=== PATIENT | male | born 1965 | race Caucasian/White ===

== ENCOUNTER 2018-02-14 21:37 | Inpatient (IN) ==
[2018-02-14] MEDS ORDERED: Sodium Chlor 0.9% Inj 500 ML IV.SIG ONE ×2 (22:24→23:43)
[2018-02-14 22:49] LABS: Baso # (Auto) 0.1 th/mm3 (0.0-0.2); Baso % (Auto) 1.1 % (0.0-2.0); Eos # (Auto) 0.1 th/mm3 (0.0-0.4); Eos % (Auto) 1.5 % (0.0-4.0); Hematocrit 36.2 % (39.0-51.0); Hemoglobin 12.1 gm/dL (13.0-17.0); Lymph % (Auto) 32.6 % (9.0-44.0); Mean Corpuscular HGB Conc 33.5 % (32.0-36.0); Mean Corpuscular Hemoglobin 30.4 pg (27.0-34.0); Mean Corpuscular Volume 90.7 fL (80.0-100.0); Mono # (Auto) 0.4 th/mm3 (0.0-0.9); Mono % (Auto) 7.3 % (0.0-8.0); Neut # (Auto) 3.5 th/mm3 (1.8-7.7); Neut % (Auto) 57.5 % (16.0-70.0); Platelet Count 251 th/mm3 (150-450); Red Cell Distribution Width 15.9 % (11.6-17.2); White Blood Count 6.1 th/mm3 (4.0-11.0)
--- NOTE | 2018-02-14 22:53 | XR ---
EXAM DATE: 02/14/2018 10:51 PM EDT AGE/SEX: 52 years / Male INDICATIONS: Chest pain for one week. CLINICAL DATA: This is the patient's initial encounter. Patient reports that signs and symptoms have been present for 1 week and indicates a pain score of 6/10. MEDICAL/SURGICAL HISTORY: None. None. COMPARISON: No prior exams available for comparison. FINDINGS: A single AP view of the chest demonstrates the lungs to be symmetrically aerated without evidence of mass, infiltrate or effusion. The cardiomediastinal contours are unremarkable. Osseous structures a re intact. CONCLUSION: Negative examination. Electronically signed by: Max Virk MD 02/14/2018 10:52 PM EDT
[2018-02-14 23:04] LABS: Activated Partial Thrombo Time 23.1 sec (24.3-30.1); INR 1.1 Ratio; Prothrombin Time 11.4 sec (9.8-11.6)
[2018-02-14 23:22] LABS: Anion Gap 13 meq/L (5-15); Blood Urea Nitrogen 37 mg/dL (7-18); Calcium 8.6 mg/dL (8.5-10.1); Carbon Dioxide 19.4 meq/L (21.0-32.0); Chloride 106 meq/L (98-107); Glomerular Filtration Rate 17 mL/min (>89); Glucose,Random 232 mg/dL (74-106); Magnesium 1.4 mg/dL (1.5-2.5); Potassium 4.5 meq/L (3.5-5.1); Sodium 138 meq/L (136-145)
[2018-02-14] MEDS ORDERED: Mag Sulf 1 gm/100 ml Premix 100 ML IV.SIG ONE (23:30)
--- NOTE | 2018-02-15 00:23 | ED ---
HPI General Chief Complaint: Chest Pain Stated Complaint: Chest pain/Poss Seizure Time Seen by Provider: 02/14/18 22:23 Source: patient and family Limitations: no limitations History of Present Illness HPI narrative: Patient is a 52-year-old male, past medical history significant for insulin-dependent diabetes, coronary artery disease with 2 previous stents, hypertension, sleep apnea who presents with complaint of syncope versus seizure. He was on a dinner cruise this evening with his when he started to have worsening chest pain, lightheadedness and lost consciousness for several minutes. His states that he had a shaking motion at that time but did not have any urinary incontinence. When patient came around he was slightly confused. Patient states that he has had intermittent chest pain for the last several days that is worsened with exertion associated with some dyspnea. He does admit to a central bed rest at home as he is on disability secondary to his chronic back pain. Patient has never had a seizure and has no family history of seizures. He did fall approximately 1 week ago and hit his head. No fever no chills. No cough nor congestion. No abdominal pain. With EMS he did receive aspirin and nitroglycerin. He states that his discomfort improved after the nitroglycerin. MD complaint: chest pain Complete Quality Measures for STEMI Alert Patients STEMI Alert: No Onset (ago): day(s) Duration: intermittent Onset: during rest and during exertion Pain location: substernal Severity: mild Quality: dull Pain radiation: LUE Relieving factors: nothing Exacerbating factors: exertion Context: recent immobilization Associated symptoms: syncope Treatments prior to arrival chest pain: aspirin and nitroglycerin Related Data Home Medications Medication Instructions Recorded Confirmed Prilosec 20 mg PO BID 02/14/18 02/14/18 amlodipine [Norvasc] 5 mg PO BID 02/14/18 02/14/18 atorvastatin 20 mg PO DAILY 02/14/18 02/14/18 chlorthalidone 25 mg PO DAILY 02/14/18 02/14/18 clonidine HCl 0.1 mg PO BID 02/14/18 02/14/18 escitalopram oxalate [Lexapro] 20 mg PO DAILY 02/14/18 02/14/18 gabapentin 300 mg PO BID 02/14/18 02/14/18 insulin detemir U-100 [Levemir 40 unit SUB-Q QPM 02/14/18 02/14/18 U-100 Insulin] insulin lispro [Humalog U-100 10 units SUB-Q TID 02/14/18 02/14/18 Insulin] losartan 100 mg PO DAILY 02/14/18 02/14/18 metoprolol tartrate 100 mg PO DAILY 02/14/18 02/14/18 topiramate [Topamax] 25 mg PO TID 02/14/18 02/14/18 Allergies Allergy/AdvReac Type Severity Reaction Status Date / Time No Known Allergies Allergy Verified 02/14/18 22:06 Review of Systems Except as stated in HPI: all other systems reviewed are negative Constitutional Denies fever(s) Eyes Denies blurry vision ENT Denies nasal congestion Cardiovascular Reports chest pain and Reports syncope Respiratory Reports dyspnea on exertion Gastrointestinal Denies abdominal pain Genitourinary Reports other (decreased urine output despite his "fluid pills") Musculoskeletal Reports back pain (chronic, unchanged) Integumentary/Breasts Denies rash Neurologic Denies headache(s) [facility] Medical History Medical History Back pain (Acute) Chest pain (Acute) Diabetes (Acute) Fall (Acute) HTN (hypertension) (Acute) Myocardial infarct (Acute) Sleep apnea (Acute) Vertigo (Acute) Surgical History Surgical History History of cataract surgery (Acute) Hx of knee surgery (Acute) Stented coronary artery (Acute) Social History Social History Substance History: No History of Abuse Second Hand Smoke Exposure: No Smoking Status: Never smoker Tobacco Type: Smokeless Tobacco How Often Do You Have a Drink Containing Alcohol: 2 to 4 times a month Recent Travel in [facility] within the Last 8 Weeks: No Recent Out of Country Travel within the Last 8 Weeks: No Immunization History Tetanus Immunization: <5 Years Hx Influenza Vaccine This Season: No Exam Narrative Exam Narrative: GENERAL: Well-appearing male in no acute distress SKIN: Focused skin assessment warm/dry. No rashes. HEAD: Atraumatic. Normocephalic. EYES: Pupils equal and round. No scleral icterus. No injection or drainage. ENT: No nasal bleeding or discharge. Mucous membranes pink and dry. NECK: Trachea midline. No JVD. CARDIOVASCULAR: Regular rate and rhythm. No murmur appreciated. Intact and equal peripheral pulses. RESPIRATORY: No accessory muscle use. Clear to auscultation. Breath sounds equal bilaterally. GASTROINTESTINAL: Abdomen soft, non-tender, nondistended. Hepatic and splenic margins not palpable. MUSCULOSKELETAL: No obvious deformities. No clubbing. No cyanosis. No edema. NEUROLOGICAL: Awake and alert. No obvious cranial nerve deficits. Motor grossly within normal limits. Normal sensation. No ataxia. Normal speech. PSYCHIATRIC: Appropriate mood and affect; insight and judgment normal. Course Initial Documented Vital Signs Temperature 98.7 F 02/14/18 22:01 Pulse Rate 76 02/14/18 22:01 Respiratory Rate 20 02/14/18 22:01 Blood Pressure 94/55 L 02/14/18 22:01 Pulse Oximetry 97 02/14/18 22:01 Last Documented Vital Signs Temperature 98.7 F 02/14/18 22:01 Pulse Rate 77 02/15/18 01:17 Respiratory Rate 21 02/15/18 00:10 Blood Pressure 100/58 L 02/15/18 01:17 Pulse Oximetry 99 02/15/18 01:17 Medical Decision Making [facility] Narrative Medical decision making narrative: Patient is a 52-year-old male, past medical history significant for coronary artery disease, who presents with complaint of chest pain intermittently over the last several days with an episode of syncope versus seizure while at dinner tonight. On arrival he was hypotensive but this improved with rehydration. EKGs were unchanged from previous. Initial labs revealed a markedly elevated creatinine which patient states is new for him. Initial troponin was unremarkable. Given his syncope versus seizure and hypotension on arrival a CTA to rule out pulmonary embolism was ordered. Secondary to his acute kidney injury he could not receive IV contrast and a VQ study was ordered. The technicians informed us that the V/Q study was going to take several hours and is still pending at this time. CT head did show a hypodensity which will need further workup with an MRI. He has been admitted to the hospitalist service for his KAMARN and chest pain (to rule out FL) and for further workup and management. Differential Diagnosis Differential Diagnosis: Differential diagnosis includes but is not limited to acute coronary syndrome, pulmonary embolism, aortic dissection, pneumonia, heart failure, cardiomyopathy, seizure, intracranial mass. Medical Records Medical records reviewed: Yes I reviewed the patient's medical records. Lab Data Lab results reviewed: Yes I reviewed the patient's lab results. Lab results narrative: Labs consistent with dehydration and acute worsening of renal function with hyperglycemia. Result diagrams: 02/14/18 22:30 02/14/18 22:30 Lab Results 02/14/18 02/14/18 02/14/18 Range/Units 22:30 22:30 22:30 WBC 6.1 (4.0-11.0) th/mm3 RBC 4.00 L (4.50-5.90) mil/mm3 Hgb 12.1 L (13.0-17.0) gm/dL Hct 36.2 L (39.0-51.0) % MCV 90.7 (80.0-100.0) fL MCH 30.4 (27.0-34.0) pg MCHC 33.5 (32.0-36.0) % RDW 15.9 (11.6-17.2) % Plt Count 251 (150-450) th/mm3 MPV 9.0 (7.0-11.0) fL Neut % (Auto) 57.5 (16.0-70.0) % Lymph % (Auto) 32.6 (9.0-44.0) % [place] % (Auto) 7.3 (0.0-8.0) % Eos % (Auto) 1.5 (0.0-4.0) % Baso % (Auto) 1.1 (0.0-2.0) % Neut # (Auto) 3.5 (1.8-7.7) th/mm3 Lymph # (Auto) 2.0 (1.0-4.8) th/mm3 [place] # (Auto) 0.4 (0.0-0.9) th/mm3 Eos # (Auto) 0.1 (0.0-0.4) th/mm3 Baso # (Auto) 0.1 (0.0-0.2) th/mm3 WBC Differential . Differential Comment Auto diff final PT 11.4 (9.8-11.6) sec INR 1.1 Ratio APTT 23.1 L (24.3-30.1) sec Sodium 138 (136-145) meq/L Potassium 4.5 (3.5-5.1) meq/L Chloride 106 (98-107) meq/L Carbon Dioxide 19.4 L (21.0-32.0) meq/L Anion Gap 13 (5-15) meq/L BUN 37 H (7-18) mg/dL Creatinine 3.75 H (0.60-1.30) mg/dL Estimated GFR 17 L (>89) mL/min Random Glucose 232 H (74-106) mg/dL Calcium 8.6 (8.5-10.1) mg/dL Magnesium 1.4 L (1.5-2.5) mg/dL Troponin I Less than 0.02 L (0.02-0.05) ng/mL B-Natriuretic Peptide (0-100) pg/mL 02/14/18 02/15/18 Range/Units 22:30 01:32 WBC (4.0-11.0) th/mm3 RBC (4.50-5.90) mil/mm3 Hgb (13.0-17.0) gm/dL Hct (39.0-51.0) % MCV (80.0-100.0) fL MCH (27.0-34.0) pg MCHC (32.0-36.0) % RDW (11.6-17.2) % Plt Count (150-450) th/mm3 MPV (7.0-11.0) fL Neut % (Auto) (16.0-70.0) % Lymph % (Auto) (9.0-44.0) % [place] % (Auto) (0.0-8.0) % Eos % (Auto) (0.0-4.0) % Baso % (Auto) (0.0-2.0) % Neut # (Auto) (1.8-7.7) th/mm3 Lymph # (Auto) (1.0-4.8) th/mm3 [place] # (Auto) (0.0-0.9) th/mm3 Eos # (Auto) (0.0-0.4) th/mm3 Baso # (Auto) (0.0-0.2) th/mm3 WBC Differential Differential Comment PT (9.8-11.6) sec INR Ratio APTT (24.3-30.1) sec Sodium (136-145) meq/L Potassium (3.5-5.1) meq/L Chloride (98-107) meq/L Carbon Dioxide (21.0-32.0) meq/L Anion Gap (5-15) meq/L BUN (7-18) mg/dL Creatinine (0.60-1.30) mg/dL Estimated GFR (>89) mL/min Random Glucose (74-106) mg/dL Calcium (8.5-10.1) mg/dL Magnesium (1.5-2.5) mg/dL Troponin I Less than 0.02 L (0.02-0.05) ng/mL B-Natriuretic Peptide 31 (0-100) pg/mL Imaging Data Attestation: I personally reviewed and interpreted this imaging study as follows : My impression: No acute cardiopulmonary process visualized on x-ray. Radiologist's impression: Chest X-Ray 02/14/18 22:24 CONCLUSION: Negative examination. Head CT 02/15/18 00:00 CONCLUSION: 1. The only abnormality seen is a 12 mm hypodensity in the cortex of the right occipital lobe. No evidence of mass effect, blood products, or cerebral edema. This is of uncertain significance. Recommend further characterization of this finding with MRI with and without contrast. . ECG Data EKG Prior to Arrival: No Attestation: I personally reviewed and interpreted this ECG as follows: (Sinus rhythm at a rate of 75 bpm. T-wave flattening in lead III. No other ST or T- wave changes. EKG is similar to previous EKG.) Prior ECG tracings: available for review Discharge Plan Discharge Disposition Patient Disposition: 30 Still Patient Discharge Condition Condition: Fair Discharge Details Diagnosis: KAMRAN (acute kidney injury), Chest pain, rule out acute myocardial infarction Physicians Team ED Provider: Yvette Koenig Primary Care Provider: Primary Care Jalyn Chacon Attending Provider: Mel Heredia Status ED Status: Admitted Patient
[2018-02-15] MEDS ORDERED: Sod Chloride 0.9% Inj 1,000 ML IV.SIG ONE (00:29)
--- NOTE | 2018-02-15 01:04 | CT ---
EXAM DATE: 02/15/2018 12:51 AM EDT AGE/SEX: 52 years / Male INDICATIONS: Seizure. CLINICAL DATA: This is the patient's initial encounter. Patient reports that signs and symptoms have been present for 1 day and indicates a pain score of 0/10. MEDICAL/SURGICAL HISTORY: Diabetes. Cardiovascular disease. Coronary stent None. RADIATION DOSE: 56.35 CTDI (mGy) COMPARISON: No prior exams available for comparison. TECHNIQUE: CT of the head without contrast. Using automated exposure control and adjustment of the mA and/or kV according to patient size, radiation dose was kept as low as reasonably achievable to ob tain optimal diagnostic quality images. DICOM format image data is available electronically for revi ew and comparison. FINDINGS: Cerebrum: The ventricles are normal for age. There is a focal 12 mm hypodensity in the cortex of the mid convexity right occipital lobe, best seen on axial image #13. No associated calcification or mas s effect. No evidence of acute blood products. No extraaxial fluid collections are seen. Posterior Fossa: The cerebellum and brainstem are intact. The 4th ventricle is midline. The cerebe llopontine angle is unremarkable. Extracranial: The visualized portion of the orbits is intact. Skull: The calvaria is intact. No evidence of skull fracture. CONCLUSION: 1. The only abnormality seen is a 12 mm hypodensity in the cortex of the right occipital lobe. No ev idence of mass effect, blood products, or cerebral edema. This is of uncertain significance. Recommen d further characterization of this finding with MRI with and without contrast. . Electronically signed by: Sly Hough MD 02/15/2018 1:03 AM EDT
[2018-02-15] MEDS ORDERED: Dextrose 50% in Water 50 ML Vial IV.PUSH PRN (01:49)
[2018-02-15] MEDS ORDERED: Temazepam 15 MG Capsule PO PRN (01:51)
[2018-02-15] MEDS ORDERED: Bisacodyl 10 MG Supp RECTAL PRN (01:51)
[2018-02-15] MEDS: Sod Chloride 0.9% Inj 1,000 ML IV.CONT SCH (02:00)
--- NOTE | 2018-02-15 03:00 | P.HPIM ---
History of Present Illness Primary Care Physician: No Primary Care Physician History of Present Illness: This is a 60-year-old male with a PMH of HTN, DM, Sleep Apnea and CAD s/p Stent who was brought to the ER by EMS after syncope vs seizure. Pt has minimal recollection of events. States he was on a dinner cruise w/ his and was sitting at a table talking to another couple when he had sudden onset of dizziness and chest pain, recalls nothing after that until he woke up in the ER. 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 No h/o seizure. Notes fall approx 1wk ago w/ head trauma but did not seek medical attention at that time. On arrival, BP 87/51, HR 76, O2 sat 99% on 2L NC, Afebrile. S/p 2L IVF w/ repeat BP 100/58, HR 77. CBC essentially unremarkable. INR 1.1. Creatinine 3.75, no previous labs for comparison however reports no history of renal dysfunction. Troponin negative. CXR with no acute findings. CT Head with abnormal 12 mm hypodensity cortex of right occipital lobe, no mass-effect or edema, recommend patient for MRI. V/Q pending, U/a pending. - Diagnosis (1) Syncope (2) Chest pain (3) KAMRAN (acute kidney injury) (4) Abnormal head CT (5) DM (diabetes mellitus) Inpatient Certification: I certify that the inpatient services were ordered in accordance with Medicare regulations governing the order. This includes certification that hospital inpatient services are reasonable and necessary and in the case of services not specified as inpatient-only under 42 CFR 419.22(n), that they are appropriately provided as inpatient services in accordance to with the 2-midnight benchmark under 43 CFR 412.3(e) Estimated Total Length of Stay (Days): 2 Plans for Post Hospital Care: Not yet determined Review of Systems PAST FAMILY HISTORY: Reviewed. 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 - Medical History Medical History: Medical History (Last Reviewed 02/15/18 @ 00:21 by Yvette Koenig MD) Back pain Chest pain Diabetes Fall HTN (hypertension) Myocardial infarct Sleep apnea Vertigo - Surgical History Surgical History: Surgical History (Last Reviewed 02/15/18 @ 00:21 by Yvette Koenig MD) History of cataract surgery Hx of knee surgery Stented coronary artery - Tobacco History Second Hand Smoke Exposure: No Tobacco Use In Past 30 Days: No Smoking Status: Never smoker Tobacco Type: Smokeless Tobacco - Alcohol History How Often Do You Have a Drink Containing Alcohol: 2 to 4 times a month - Substance Use History Substance History: No History of Abuse - Travel History Recent Travel in the [place] Within the Last 8 Weeks: No Recent Travel Out of the Country Within the Last 8 Weeks: No - Immunization History Tetanus Immunization: <5 Years Hx Influenza Vaccine This Season: No Medications and Allergies Active Medications: Active Medications Hydrocodone Bitart/Acetaminophen ([place] 5/325) 1 tab PO Q4H PRN PRN Reason: PAIN - Al Hydroxide/Mg Hydroxide (Milk Of Magnesia Liq) 30 ml PO Q12H PRN PRN Reason: Mild Constipation Bisacodyl (Dulcolax Supp) 10 mg RECTAL DAILY PRN PRN Reason: SEVERE CONSITIPATION Dextrose (D50w Vial) 50 ml IV.PUSH UNSCH PRN PRN Reason: PER HYPOGLYCEMIA PROTOCOL Glucagon (Glucagon Inj) 1 mg OTHER PRN PRN PRN Reason: for Hypoglycemia Protocol Sodium Chloride (Ns Inj) 1,000 mls @ 100 mls/hr IV.CONT .Q10H MADDIE Last Admin: 02/15/18 02:00 Dose: 100 mls/hr Insulin Aspart (Novolog Insulin Correctional Sugar Inj) 0 unit SQ ACHS MADDIE; Protocol Lactulose (Lactulose Liq) 30 ml PO DAILY PRN PRN Reason: SEVERE CONSITIPATION Ondansetron HCl (Zofran Inj) 4 mg IV.PUSH Q6H PRN PRN Reason: NAUSEA OR VOMITING Senna/Docusate Sodium (Janeth-Colace) 1 tab PO BID MADDIE Sennosides (Senokot) 17.2 mg PO Q12H PRN PRN Reason: Moderate Constipation Sodium Chloride (Ns Flush) 2 ml IV.FLUSH UNSCH PRN PRN Reason: FLUSH AFTER USING IV ACCESS Temazepam (Restoril) 15 mg PO HS PRN PRN Reason: INSOMNIA Allergies Allergy/AdvReac Type Severity Reaction Status Date / Time No Known Allergies Allergy Verified 02/14/18 22:06 Home Medications Medication Instructions Recorded Confirmed Type Prilosec 20 mg PO BID 02/14/18 02/14/18 History amlodipine [Norvasc] 5 mg PO BID 02/14/18 02/14/18 History atorvastatin 20 mg PO DAILY 02/14/18 02/14/18 History chlorthalidone 25 mg PO DAILY 02/14/18 02/14/18 History clonidine HCl 0.1 mg PO BID 02/14/18 02/14/18 History escitalopram oxalate [Lexapro] 20 mg PO DAILY 02/14/18 02/14/18 History gabapentin 300 mg PO BID 02/14/18 02/14/18 History insulin detemir U-100 [Levemir 40 unit SUB-Q QPM 02/14/18 02/14/18 History U-100 Insulin] insulin lispro [Humalog U-100 10 units SUB-Q TID 02/14/18 02/14/18 History Insulin] losartan 100 mg PO DAILY 02/14/18 02/14/18 History metoprolol tartrate 100 mg PO DAILY 02/14/18 02/14/18 History topiramate [Topamax] 25 mg PO TID 02/14/18 02/14/18 History Exam Vital signs: Vital Signs 02/14/18 22:01 02/14/18 22:13 02/14/18 22:30 Temperature 98.7 F Pulse Rate 76 76 73 Respiratory Rate 20 22 Blood Pressure 94/55 L 87/51 L 75/45 L Pulse Oximetry 97 99 99 02/14/18 22:43 02/14/18 23:56 02/15/18 00:01 Temperature Pulse Rate 73 75 74 Respiratory Rate 20 20 Blood Pressure 83/52 L 87/48 L 90/54 L Pulse Oximetry 98 100 99 02/15/18 00:10 02/15/18 00:16 02/15/18 00:36 Temperature Pulse Rate 73 71 71 Respiratory Rate 21 Blood Pressure 87/48 L 83/44 L 88/52 L Pulse Oximetry 100 100 99 02/15/18 01:17 Temperature Pulse Rate 77 Respiratory Rate Blood Pressure 100/58 L Pulse Oximetry 99 Intake & Output 02/14/18 02/14/18 02/15/18 06:59 18:59 06:59 Intake Total 1100 / 1100 Balance 1100 / 1100 Weight 142.882 kg Intake: IV 1100 / 1100 Magnesium Sulfate 1 gm/D5W 100 100 / 100 ml Premix 100 ML @ 100 mls/hr IV.SIG ONCE ONE Rx#:[id number] NS Inj 500 ML @ Wide Open IV. 1000 / 1000 SIG BOLUS ONE Rx#:[id number] Narrative: PE: GENERAL: Very pleasant middle-aged morbidly obese male in no acute distress. HEENT: PERRLA, EOMI. No scleral icterus or conjunctival pallor. No lid lag or facial droop. CARDIOVASCULAR: Regular rate and rhythm. No obvious murmurs to auscultation. No chest tenderness to palpation. RESPIRATORY: No obvious rhonchi or wheezing. Clear to auscultation. Breath sounds equal bilaterally. GASTROINTESTINAL: Abdomen soft, non-tender, nondistended. BS normal. MUSCULOSKELETAL: Extremities without clubbing, cyanosis, or edema. No obvious deformities. NEUROLOGICAL: Awake, alert and oriented x4. No focal neurologic deficits. Moving both upper and lower extremities spontaneously. Results - Labs CBC & Chem 7: 02/14/18 22:30 02/14/18 22:30 Labs: Short CBC 02/14/18 Range/Units 22:30 WBC 6.1 (4.0-11.0) th/mm3 Hgb 12.1 L (13.0-17.0) gm/dL Hct 36.2 L (39.0-51.0) % Plt Count 251 (150-450) th/mm3 BMP 02/14/18 22:30 Sodium 138 Potassium 4.5 Chloride 106 Carbon Dioxide 19.4 L BUN 37 H Creatinine 3.75 H Calcium 8.6 Cardiac Enzymes 02/14/18 02/15/18 Range/Units 22:30 01:32 Troponin I Less than 0.02 L Less than 0.02 L (0.02-0.05) ng/mL - Imaging Impressions Chest X-Ray 02/14/18 22:24 CONCLUSION: Negative examination. Head CT 02/15/18 00:00 CONCLUSION: 1. The only abnormality seen is a 12 mm hypodensity in the cortex of the right occipital lobe. No evidence of mass effect, blood products, or cerebral edema. This is of uncertain significance. Recommend further characterization of this finding with MRI with and without contrast. . Caprini VTE Risk Assessment Caprini VTE Risk Assessment: No/Low Risk (score <= 1) Caprini Risk Assessment Model: Point Value = 1 Point Value = 2 Point Value = 3 Point Value = 5 Age 41-60 Minor surgery BMI > 25 kg/m2 Swollen legs Varicose veins or History of unexplained or recurrent spontaneous Oral contraceptives or hormone replacement Sepsis (< 1 month) Serious lung disease, including pneumonia (< 1 month) Abnormal pulmonary function Acute myocardial infarction Congestive heart failure (< 1 month) History of inflammatory bowel disease Medical patient at bed rest Age 61-74 Arthroscopic surgery Major open surgery (> 45 min) Laparoscopic surgery (> 45 min) Malignancy Confined to bed (> 72 hours) Immobilizing plaster cast Central venous access Age >= 75 History of VTE Family history of VTE Factor V Leiden Prothrombin [id number] Lupus anticoagulant Anticardiolipin antibodies Elevated serum homocysteine Heparin-induced thrombocytopenia Other congenital or acquired thrombophilia Stroke (< 1 month) Elective arthroplasty Hip, pelvis, or leg fracture Acute spinal cord injury (< 1 month) Prophylaxis Regimen: Total Risk Factor Score Risk Level Prophylaxis Regimen 0-1 Low Early ambulation 2 Moderate Order ONE of the following: *Sequential Compression Device (SCD) *Heparin 5000 units SQ BID 3-4 Higher Order ONE of the following medications: *Heparin 5000 units SQ TID *Enoxaparin/Lovenox 40 mg SQ daily (WT < 150 kg, CrCl > 30 mL/min) *Enoxaparin/Lovenox 30 mg SQ daily (WT < 150 kg, CrCl > 10-29 mL/min) *Enoxaparin/Lovenox 30 mg SQ BID (WT < 150 kg, CrCl > 30 mL/min) AND/OR *Sequential Compression Device (SCD) 5 or more Highest Order ONE of the following medications: *Heparin 5000 units SQ TID (Preferred with Epidurals) *Enoxaparin/Lovenox 40 mg SQ daily (WT < 150 kg, CrCl > 30 mL/min) *Enoxaparin/Lovenox 30 mg SQ daily (WT < 150 kg, CrCl > 10-29 mL/min) *Enoxaparin/Lovenox 30 mg SQ BID (WT < 150 kg, CrCl > 30 mL/min) AND *Sequential Compression Device (SCD) Assessment and Plan - Assessment (1) Syncope Code(s): R55 - Syncope and collapse Status: Acute (2) Chest pain Code(s): R07.9 - Chest pain, unspecified Status: Acute (3) KAMRAN (acute kidney injury) Code(s): N17.9 - Acute kidney failure, unspecified Status: Acute (4) Abnormal head CT Code(s): R93.0 - Abnormal findings on diagnostic imaging of skull and head, not elsewhere classified Status: Acute (5) DM (diabetes mellitus) Code(s): E11.9 - Type 2 diabetes mellitus without complications Status: Acute - Plan A/P: 1. Syncope: vs Seizure, pt w/ c/o dizziness and subsequent syncope, noted to have seizure-like activity by bystanders, ?convulsive syncope vs true seizure. No h/o similar events. Check Echo to eval for valvular abnormalities/ cardiomyopathy, Neuro Checks, Check EEG to eval for seizure activity, Check MRI to further eval abnormal finding on CT. Neurology as needed. V/Q pending. Seizure Precautions. 2. Chest Pain: c/o chest pain prior to syncope/seizure, now chest pain free, h /o CAD s/p Stent, initial trop negative, check serial cardiac enzymes. Check Lipid Profile, Hgb A1c, Statin, ASA. 3. KAMRAN: Creatinine 3.75, no previous labs for comparison but presumably new, IVF for hydration, Check U/a, Monitor I/O, repeat labs in am. Nephrology consult as needed. 4. Abnormal CT Head: CT Head w/ abnormal 12mm hypodensity cortex of right occipital lobe, recommendation for MRI w/ and w/o contrast, however in light of KAMRAN will proceed without contrast. 5. DM: Sliding scale w/ Accu-Cheks. Check Hgb A1c, hold home Insulin for now 6. DVT Prophylaxis: Hold anticoagulation until MRI Brain results available, SCD/Teds 7. Social work for d/c planning as needed 8. Case discussed w/ ER physician at length, labs/records/imaging reviewed by me.
[2018-02-15] MEDS ORDERED: Morphine Inj 4 MG/ML Vial IV.PUSH PRN (03:02)
--- NOTE | 2018-02-15 04:02 | NM ---
EXAM DATE: 02/15/2018 3:06 AM EDT AGE/SEX: 52 years / Male INDICATIONS: Short of breath. CLINICAL DATA: This is the patient's initial encounter. Patient reports that signs and symptoms have been present for 2 days and indicates a pain score of 3/10. MEDICAL/SURGICAL HISTORY: Hypertension. Diabetes mellitus type II. Myocardial infarction. Cor onary artery stent. Knee surgery. COMPARISON: [facility], CHEST 1V SINGLE AP, 02/14/2018. . DOSE: 1.62 mCi Tc99m DTPA aerosol 8.1 mCi Tc99m MAA IV TECHNIQUE: Following five minutes of tidal breathing of DTPA aerosol, planar images of the lungs wer e performed in eight projections. The patient was then injected with MAA, and eight-view perfusion s can was performed. FINDINGS: There is a homogeneous pattern of aerosol delivery to the periphery of both lungs. No focal ventilat ory defects are seen. There is some mild central deposition of aerosol. The perfusion lung scan demonstrates a homogenous pattern of uptake in both lungs. No segmental or s ubsegmental defects are seen. CONCLUSION: 1. Low probability pulmonary embolism. Electronically signed by: Sly Hough MD 02/15/2018 4:00 AM EDT
[2018-02-15 08:22] LABS: Baso # (Auto) 0.1 th/mm3 (0.0-0.2); Baso % (Auto) 0.9 % (0.0-2.0); Eos # (Auto) 0.1 th/mm3 (0.0-0.4); Eos % (Auto) 1.6 % (0.0-4.0); Hematocrit 34.1 % (39.0-51.0); Hemoglobin 11.4 gm/dL (13.0-17.0); Lymph # (Auto) 1.8 th/mm3 (1.0-4.8); Lymph % (Auto) 28.2 % (9.0-44.0); Mean Corpuscular HGB Conc 33.6 % (32.0-36.0); Mean Corpuscular Hemoglobin 30.5 pg (27.0-34.0); Mean Corpuscular Volume 90.9 fL (80.0-100.0); Mean Platelet Volume 9.1 fL (7.0-11.0); Mono # (Auto) 0.7 th/mm3 (0.0-0.9); Mono % (Auto) 10.5 % (0.0-8.0); Neut # (Auto) 3.7 th/mm3 (1.8-7.7); Neut % (Auto) 58.8 % (16.0-70.0); Platelet Count 200 th/mm3 (150-450); Red Blood Count 3.75 mil/mm3 (4.50-5.90); Red Cell Distribution Width 15.5 % (11.6-17.2); White Blood Count 6.3 th/mm3 (4.0-11.0)
[2018-02-15] MEDS: Insulin NovoLOG Aspart Correctional Sugar Inj SQ SCH ×4 (08:24→21:20)
[2018-02-15] MEDS: Senna/Docusate Sodium 8.6/50 MG Tablet PO SCH ×2 (08:24→21:15)
[2018-02-15 08:35] LABS: Alanine Aminotransferase 87 U/L (12-78); Albumin 3.2 g/dL (3.4-5.0); Anion Gap 10 meq/L (5-15); Aspartate Aminotransferase 98 U/L (15-37); Blood Urea Nitrogen 35 mg/dL (7-18); Calcium 7.9 mg/dL (8.5-10.1); Carbon Dioxide 21.3 meq/L (21.0-32.0); Chloride 111 meq/L (98-107); Chol/HDL Ratio 4.58 Ratio; Glomerular Filtration Rate 20 mL/min (>89); Glucose,Random 149 mg/dL (74-106); Potassium 4.5 meq/L (3.5-5.1); Sodium 142 meq/L (136-145)
[2018-02-15 08:39] LABS: Alkaline Phosphatase 93 U/L (45-117); Total Protein 7.3 g/dL (6.4-8.2)
--- NOTE | 2018-02-15 08:43 | ECG ---
Date Performed: 02/15/2018 Time Performed: 01:52:58 PTAGE: 52 years EKG: Sinus rhythm LOW QRS VOLTAGE IN PRECORDIAL LEADS INFERIOR MYOCARDIAL INFARCTION ABNORMAL ECG Since the PREVIOUS TRACING , no significant change noted DOCTOR: Rosa Kerr Interpretating Date/Time 02/15/2018 08:42:20
--- NOTE | 2018-02-15 08:48 | ECG ---
Date Performed: 02/14/2018 Time Performed: 22:03:33 PTAGE: 52 years EKG: Sinus rhythm LOW QRS VOLTAGE IN PRECORDIAL LEADS POSSIBLE RIGHT VENTRICULAR CONDUCTION DELAY INFERIOR MYOCARDIAL INFARCTION ABNORMAL ECG NO PREVIOUS TRACING DOCTOR: Rosa Kerr Interpretating Date/Time 02/15/2018 08:46:21
[2018-02-15 09:03] LABS: Platelet Estimate Normal (Normal); Platelet Morphology Normal (Normal)
[2018-02-15] MEDS ORDERED: LORazepam 0.5 MG Tablet PO ONE (09:36)
--- NOTE | 2018-02-15 10:16 | P.PNIM ---
Subjective Interval history: Patient seen and examined this morning. Was attempting to walk to the bathroom but very unsteady on his feet. Was assisted back to bed. He states that he is very unsteady due to issues with his legs and he uses a walker at home. Patient instructed not to try to go to the bathroom without his walker. Today, he states that he has a headache, is having difficulty with vision due to not using his eyedrops, and has nausea and abdominal pain mostly in the right upper abdomen. He has also been feeling short of breath. Physical Exam Vital signs: Vital Signs 02/14/18 22:01 02/14/18 22:13 02/14/18 22:30 Temperature 98.7 F Pulse Rate 76 76 73 Respiratory Rate 20 22 Blood Pressure 94/55 L 87/51 L 75/45 L Pulse Oximetry 97 99 99 02/14/18 22:43 02/14/18 23:56 02/15/18 00:01 Temperature Pulse Rate 73 75 74 Respiratory Rate 20 20 Blood Pressure 83/52 L 87/48 L 90/54 L Pulse Oximetry 98 100 99 02/15/18 00:10 02/15/18 00:16 02/15/18 00:36 Temperature Pulse Rate 73 71 71 Respiratory Rate 21 Blood Pressure 87/48 L 83/44 L 88/52 L Pulse Oximetry 100 100 99 02/15/18 01:17 02/15/18 04:00 02/15/18 04:43 Temperature 98.3 F Pulse Rate 77 79 Respiratory Rate 18 Blood Pressure 100/58 L 124/76 123/78 Pulse Oximetry 99 99 02/15/18 08:00 Temperature 97.8 F Pulse Rate 71 Respiratory Rate 18 Blood Pressure 125/74 Pulse Oximetry 99 Intake & Output 02/14/18 02/15/18 02/15/18 18:59 06:59 18:59 Intake Total 1100 / 1100 Output Total 550 / 550 675 / 675 Balance 550 / 550 -675 / -675 Weight 145.5 kg Intake: IV 1100 / 1100 Magnesium Sulfate 1 gm/D5W 100 100 / 100 ml Premix 100 ML @ 100 mls/hr IV.SIG ONCE ONE Rx#:[id number] NS Inj 500 ML @ Wide Open IV. 1000 / 1000 SIG BOLUS ONE Rx#:[id number] Output: Urine 550 / 550 675 / 675 Other: Weight On Admission 145.5 kg Narrative: GENERAL: Very pleasant middle-aged morbidly obese male in no acute distress. HEENT: PERRLA, EOMI. No scleral icterus or conjunctival pallor. No lid lag or facial droop. CARDIOVASCULAR: Regular rate and rhythm. No obvious murmurs to auscultation. RESPIRATORY: Inspiratory and expiratory wheezing appreciated with crackles in bases GASTROINTESTINAL: Abdomen soft, ttp diffusely, but worse in the RUQ, obese, nondistended. BS normal. MUSCULOSKELETAL: Extremities without clubbing, cyanosis, or edema. No obvious deformities. NEUROLOGICAL: Awake, alert and oriented x4. No focal neurologic deficits. Moving both upper and lower extremities spontaneously. Results - Labs CBC & Chem 7: 02/15/18 07:10 02/15/18 07:10 Laboratory Results - last 24 hr 02/14/18 02/14/18 02/14/18 22:30 22:30 22:30 WBC 6.1 RBC 4.00 L Hgb 12.1 L Hct 36.2 L MCV 90.7 MCH 30.4 MCHC 33.5 RDW 15.9 Plt Count 251 MPV 9.0 Prelim Diff (Auto) Neut % (Auto) 57.5 Lymph % (Auto) 32.6 [place] % (Auto) 7.3 Eos % (Auto) 1.5 Baso % (Auto) 1.1 Neut # (Auto) 3.5 Lymph # (Auto) 2.0 [place] # (Auto) 0.4 Eos # (Auto) 0.1 Baso # (Auto) 0.1 WBC Differential . Diff Scan Differential Comment Auto diff final Platelet Estimate Platelet Morphology PT 11.4 INR 1.1 APTT 23.1 L Sodium 138 Potassium 4.5 Chloride 106 Carbon Dioxide 19.4 L Anion Gap 13 BUN 37 H Creatinine 3.75 H Estimated GFR 17 L POC Glucose Random Glucose 232 H Calcium 8.6 Magnesium 1.4 L Total Bilirubin AST ALT Alkaline Phosphatase Troponin I Less than 0.02 L B-Natriuretic Peptide Total Protein Albumin Triglycerides Cholesterol LDL Cholesterol, Calc HDL Cholesterol Cholesterol/HDL Ratio 02/14/18 02/15/18 02/15/18 22:30 01:32 07:10 WBC 6.3 RBC 3.75 L Hgb 11.4 L Hct 34.1 L MCV 90.9 MCH 30.5 MCHC 33.6 RDW 15.5 Plt Count 200 MPV 9.1 Prelim Diff (Auto) Slide review pending Neut % (Auto) 58.8 Lymph % (Auto) 28.2 [place] % (Auto) 10.5 H Eos % (Auto) 1.6 Baso % (Auto) 0.9 Neut # (Auto) 3.7 Lymph # (Auto) 1.8 [place] # (Auto) 0.7 Eos # (Auto) 0.1 Baso # (Auto) 0.1 WBC Differential . Diff Scan Auto diff confirmed Differential Comment . Platelet Estimate Normal Platelet Morphology Normal PT INR APTT Sodium Potassium Chloride Carbon Dioxide Anion Gap BUN Creatinine Estimated GFR POC Glucose Random Glucose Calcium Magnesium Total Bilirubin AST ALT Alkaline Phosphatase Troponin I Less than 0.02 L B-Natriuretic Peptide 31 Total Protein Albumin Triglycerides Cholesterol LDL Cholesterol, Calc HDL Cholesterol Cholesterol/HDL Ratio 02/15/18 02/15/18 02/15/18 07:10 07:10 08:13 WBC RBC Hgb Hct MCV MCH MCHC RDW Plt Count MPV Prelim Diff (Auto) Neut % (Auto) Lymph % (Auto) [place] % (Auto) Eos % (Auto) Baso % (Auto) Neut # (Auto) Lymph # (Auto) [place] # (Auto) Eos # (Auto) Baso # (Auto) WBC Differential Diff Scan Differential Comment Platelet Estimate Platelet Morphology PT INR APTT Sodium 142 Potassium 4.5 Chloride 111 H Carbon Dioxide 21.3 Anion Gap 10 BUN 35 H Creatinine 3.23 H Estimated GFR 20 L POC Glucose 158 H Random Glucose 149 H Calcium 7.9 L Magnesium Total Bilirubin 0.3 AST 98 H ALT 87 H Alkaline Phosphatase 93 Troponin I Less than 0.02 L B-Natriuretic Peptide Total Protein 7.3 Albumin 3.2 L Triglycerides 253 H Cholesterol 156 LDL Cholesterol, Calc 71 HDL Cholesterol 34.0 L Cholesterol/HDL Ratio 4.58 - Imaging Impressions Chest X-Ray 02/14/18 22:24 CONCLUSION: Negative examination. Head CT 02/15/18 00:00 CONCLUSION: 1. The only abnormality seen is a 12 mm hypodensity in the cortex of the right occipital lobe. No evidence of mass effect, blood products, or cerebral edema. This is of uncertain significance. Recommend further characterization of this finding with MRI with and without contrast. . Head MRI 02/15/18 00:00 CONCLUSION: 1. No acute intracranial abnormalities. Questionable remote small infarct or encephalomalacia in the right occipital lobe. Pulmonary Perfusion Imaging 02/15/18 00:05 CONCLUSION: 1. Low probability pulmonary embolism. Assessment and Plan - Assessment (1) Syncope Code(s): R55 - Syncope and collapse Status: Acute Plan: -Possible witnessed seizure EEG pending -Echo pending to rule out valvular abnormalities/cardiomyopathy -Abnormal 12mm hypodensity cortex of right occipital lobe on CT MRI to further evaluate abnormal finding on CT -VQ scan showed low probability of PE -Carotid ultrasound pending -Consider neurologic consult as needed (2) Abdominal pain Code(s): R10.9 - Unspecified abdominal pain Status: Acute Plan: -Diffuse abdominal pain, worse in the right upper quadrant -Abdominal ultrasound pending -Protonix PO (3) KAMRAN (acute kidney injury) Code(s): N17.9 - Acute kidney failure, unspecified Status: Acute Plan: Improving -Creatinine 3.23 today compared to 3.75 yesterday -Continue normal saline at 100 mL/h -Avoid nephrotoxic agents -Pending results of abdominal ultrasound (4) Chest pain, rule out acute myocardial infarction Code(s): R07.9 - Chest pain, unspecified Status: Resolved Plan: Improved -Troponin 0 0.023 -Lipid panel shows triglycerides of 253, total cholesterol WNL at 156, LDL 71 WNL, HDL 34 -Most likely not cardiac source -Continue to monitor for symptoms -Start daily aspirin after MRI results (5) DM (diabetes mellitus) Code(s): E11.9 - Type 2 diabetes mellitus without complications Status: Acute Plan: A1c 8.5 Continue Accu-Cheks with SSI Has required 6 units since admission Start Levemir 10 units subcu twice daily -titrate up as needed Continue gabapentin 300 mg p.o. 3 times daily (6) Hypertension Code(s): I10 - Essential (primary) hypertension Status: Chronic Plan: Initially hypotensive but BP now in the hypertensive range On amlodipine, clonidine, chlorthalidone, losartan, and metoprolol tartrate at home -We will restart amlodipine and metoprolol -Hold losartan due to KAMRAN -Clonidine as needed SBP greater than or equal to 180, DPP greater than or equal to 100 (7) Asthma Code(s): J45.909 - Unspecified asthma, uncomplicated Status: Chronic Plan: Wheezing appreciated on exam DuoNebs every 6 hours scheduled while awake Albuterol as needed (8) Depression Code(s): F32.9 - Major depressive disorder, single episode, unspecified Status : Acute Plan: Continue Lexapro 20 mg p.o. daily (9) Hyperlipemia Code(s): E78.5 - Hyperlipidemia, unspecified Status: Chronic Plan: Lipid panel as above -Continue home Atorvastatin 20 mg PO daily (10) Glaucoma Code(s): H40.9 - Unspecified glaucoma Status: Acute Plan: Continue home eyedrops - Plan Diabetic diet DVT Prophylaxis: Hold anticoagulation until MRI Brain results available, SCD/ Teds Social work for d/c planning as needed (6) Hypertension Qualifiers: Hypertension type: essential hypertension Qualified Code(s): I10 - Essential (primary) hypertension
[2018-02-15 12:21] LABS: Hemoglobin A1c 8.5 % (4.3-6.0)
[2018-02-15 13:20] LABS: Hepatitits B Surface Antigen Nonreactive (Nonreactive)
[2018-02-15 13:30] LABS: Hepatitis A IgM Antibody Nonreactive (Nonreactive)
--- NOTE | 2018-02-15 14:13 | MR ---
EXAM DATE: 02/15/2018 1:40 PM EDT AGE/SEX: 52 years / Male INDICATIONS: Seizures. CLINICAL DATA: This is the patient's initial encounter. Patient reports that signs and symptoms have been present for 1 day and indicates a pain score of 0/10. MEDICAL/SURGICAL HISTORY: Diabetes mellitus type II. Hypertension. . ORIF leg. COMPARISON: No prior exams available for comparison. TECHNIQUE: Multiplanar, multisequence examination of the brain was performed without contrast. FINDINGS: There is a small focal area of presumed encephalomalacia measuring about 12 mm in diameter in the rig ht occipital lobe peripherally. This may represent a remote small infarct. No recent infarct. There is no mass effect or midline shift. No hydrocephalus. No abnormal extra-axial fluid collections are present. Globes intact. No sellar mass. No significant paranasal sinus disease. CONCLUSION: 1. No acute intracranial abnormalities. Questionable remote small infarct or encephalomalacia in the right occipital lobe. Electronically signed by: Julien Loza MD 02/15/2018 2:11 PM EDT
[2018-02-15] MEDS ORDERED: amLODIPine 5 MG Tablet PO SCH (14:30)
--- NOTE | 2018-02-15 17:23 | US ---
EXAM DATE: 02/15/2018 5:07 PM EDT AGE/SEX: 52 years / Male INDICATIONS: Syncope. CLINICAL DATA: This is the patient's initial encounter. Patient reports that signs and symptoms have been present for 2 days and indicates a pain score of 0/10. MEDICAL/SURGICAL HISTORY: Hypertension. Back pain. Chest pain. Diabetes. Sleep apnea. Myocardia l infarction. Vertigo. Coronary artery stent. Cataract surgery. Knee surgery. COMPARISON: No prior exams available for comparison. VELOCITY PARAMETERS: ICA/CCA Ratio: Right 1.2 , Left 1.1 ICA: Right 102 cm/sec, Left 97 cm/sec CCA: Right 82 cm/sec, Left 86 cm/sec ECA: Right 94 cm/sec, Left not visualized cm/sec Vertebral: Right not visualized cm/sec absent, Left 58 cm/sec antegrade FINDINGS: Right Carotid: No significant plaque is visualized.The waveforms are within normal limits. Left Carotid: No significant plaque is visualized. The waveforms are within normal limits. Other: None. CONCLUSION: Negative for common carotid or internal carotid artery stenosis. Right vertebral artery and left exte rnal carotid artery not visualized. Electronically signed by: Julien Loza MD 02/15/2018 5:22 PM EDT
--- NOTE | 2018-02-15 17:25 | US ---
EXAM DATE: 02/15/2018 5:14 PM EDT AGE/SEX: 52 years / Male INDICATIONS: Abdominal pain. CLINICAL DATA: This is the patient's initial encounter. Patient reports that signs and symptoms have been present for 2 months and indicates a pain score of 7/10. MEDICAL/SURGICAL HISTORY: Hypertension. Back pain. Chest pain. Diabetes. Sleep apnea. Myocardia l infarction. Vertigo. Coronary artery stent. Cataract surgery. Knee surgery. COMPARISON: No prior exams available for comparison. MEASUREMENTS: Liver:__ 25.3 cm. Common Bile Duct:___ 6mm. Right Kidney:___11.8 x 5.0 x 5.8 cm. Left Kidney:___13.7 x 5.4 x 5.3 cm. Spleen:___12.1 cm. FINDINGS: Liver: Increased echotexture without focal lesion or ductal dilation. Portal Vein: Hepatopedal flow seen in portal vein. Common Duct: No intraluminal mass or stone visualized. Gallbladder: Demonstrates no wall thickening or pericholecystic fluid. No stones visualized. Pancreas: Not well visualized. Right Kidney: Normal echotexture and cortical thickness. No mass or hydronephrosis. Left Kidney: Increased echotexture. No mass or hydronephrosis. Ascites: None Pleural Effusion: None Spleen: No focal lesion. Aorta: Not visualized. IVC: Within normal limits Other: None. CONCLUSION: 1. Fatty liver enlarged to 25.3 cm. No ascites. No free fluid. Pancreas not well visualized. No gall stones or biliary ductal dilatation. Electronically signed by: Julien Loza MD 02/15/2018 5:23 PM EDT
[2018-02-15] MEDS ORDERED: Gabapentin 300 MG Capsule PO SCH (18:00)
[2018-02-15] MEDS ORDERED: Insulin Detemir Inj 1,000 UNIT/10 ML Vial SQ SCH (21:00)
[2018-02-16] MEDS: Sod Chloride 0.9% Inj 1,000 ML IV.CONT SCH ×3 (03:44→03:45)
[2018-02-16 05:23] LABS: Hematocrit 33.5 % (39.0-51.0); Hemoglobin 11.4 gm/dL (13.0-17.0); Mean Corpuscular HGB Conc 34.1 % (32.0-36.0); Mean Corpuscular Hemoglobin 30.5 pg (27.0-34.0); Mean Corpuscular Volume 89.6 fL (80.0-100.0); Mean Platelet Volume 8.9 fL (7.0-11.0); Platelet Count 212 th/mm3 (150-450); Red Blood Count 3.74 mil/mm3 (4.50-5.90); Red Cell Distribution Width 15.9 % (11.6-17.2); White Blood Count 5.4 th/mm3 (4.0-11.0)
[2018-02-16 05:51] LABS: Alanine Aminotransferase 84 U/L (12-78); Albumin 3.3 g/dL (3.4-5.0); Alkaline Phosphatase 100 U/L (45-117); Anion Gap 13 meq/L (5-15); Aspartate Aminotransferase 82 U/L (15-37); Blood Urea Nitrogen 29 mg/dL (7-18); Calcium 8.3 mg/dL (8.5-10.1); Carbon Dioxide 22.3 meq/L (21.0-32.0); Chloride 109 meq/L (98-107); Glomerular Filtration Rate 36 mL/min (>89); Glucose,Random 129 mg/dL (74-106); Lipase 457 U/L (73-393); Sodium 144 meq/L (136-145); Total Protein 7.7 g/dL (6.4-8.2)
--- NOTE | 2018-02-16 07:48 | MG ---
cc: Sofia Matthew MD EEG NUMBER: [id number] REFERRING PHYSICIAN: Dr. Heredia CLINICAL HISTORY: In room 1610 with photic stimulation. Awake, drowsy, asleep. CT shows abnormality in the cortex in the right occipital lobe. Admitted with chest pain, lightheadedness, some shaking motion and a history of back pain, diabetes. DESCRIPTION OF RECORD: The patient has what looks like an overall normal appearing alpha rhythm 8 Hz, 20 microvolts, low-amplitude but symmetrical background. EKG is artifactual and could not be interpreted. There is quite a bit of myogenic artifact throughout the recording, but overall symmetrical. Normal alpha rhythm. Despite all of the movements. There is some jerking movements, but it does not correlate with any epileptiform features in this patient. Hyperventilation was not done. Photic stimulation, mild driving response. IMPRESSION: Overall, normal appearing study without any epileptiform features. Clinical correlation. Sofia Matthew MD DF/DL , 07:31 AM , 07:36 AM
[2018-02-16] MEDS ORDERED: Metoprolol Tartrate 100 MG Tablet PO SCH (09:00)
[2018-02-16] MEDS: Insulin NovoLOG Aspart Correctional Sugar Inj SQ SCH (09:12)
--- NOTE | 2018-02-16 10:26 | P.DS ---
Date of admission: 02/15/18 01:42 Primary care physician: No Primary Care Physician Brief History from admission: This is a 60-year-old male with a PMH of HTN, DM, Sleep Apnea and CAD s/p Stent who was brought to the ER by EMS after syncope vs seizure. Pt has minimal recollection of events. States he was on a dinner cruise w/ his and was sitting at a table talking to another couple when he had sudden onset of dizziness and chest pain, recalls nothing after that until he woke up in the ER. 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 No h/o seizure. Notes fall approx 1wk ago w/ head trauma but did not seek medical attention at that time. On arrival, BP 87/51, HR 76, O2 sat 99% on 2L NC, Afebrile. S/p 2L IVF w/ repeat BP 100/58, HR 77. CBC essentially unremarkable. INR 1.1. Creatinine 3.75, no previous labs for comparison however reports no history of renal dysfunction. Troponin negative. CXR with no acute findings. CT Head with abnormal 12 mm hypodensity cortex of right occipital lobe, no mass-effect or edema, recommend patient for MRI. V/Q pending, U/a pending. DS: Medications - Discharge Medications Prescriptions: amlodipine 10 mg PO DAILY #30 tab atorvastatin 40 mg PO HS #90 tab clonidine HCl 0.1 mg PO Q8H PRN #90 tab PRN Reason: For systolic BP > 160 losartan 50 mg PO DAILY #30 tab metoprolol tartrate 25 mg PO BID #60 tab DS: Summary Hospital Course: This is a 60-year-old male with a PMH of HTN, DM, Sleep Apnea and CAD s/p Stent who was brought to the ER by EMS after syncope vs seizure. On arrival, BP 87/51 , HR 76, O2 sat 99% on 2L NC, Afebrile. S/p 2L IVF w/ repeat BP 100/58, HR 77. CBC essentially unremarkable. INR 1.1. Creatinine 3.75, no previous labs for comparison however reports no history of renal dysfunction. Troponin negative. CXR with no acute findings. V/Q scan shows low probability of PE. MRI head shows no acute findings and possible remote small infarct. With supportive care, patient's creatinine improved from 3.75 ==> 2.0. Patient likely has CKD. Further discussion on the day of discharge indicates poor blood pressure control. Patient likely had a hypotensive episode which led to his syncopal episode. He is on multiple blood pressure medications. He has never been worked up for secondary causes of hypertension. I discussed with patient and his at length regarding the importance of following up with a assistant in nursing with regards to CKD as well as secondary causes of hypertension. They verbalized understanding. At this point, I would like to change some of his blood pressure medications. We will increase amlodipine from 5 mg to 10 mg daily, change metoprolol tartrate from 100 mg daily to 25 mg p.o. twice daily. Continue chlorthalidone 25 mg daily. Change losartan from 100 mg to 50 mg daily. Change clonidine 0.1 mg twice daily scheduled to 0.1 mg p.o. every 8 hours as needed for systolic blood pressure above 160. We also discussed regarding dietary control to lose 20-30% weight in the next 3-6 months. Patient appears to be motivated. All questions answered. Patient was subsequently discharged home with outpatient follow-up. - Time Spent with Patient Total time spent providing and/or coordinating discharge services: Greater than 30 minutes - Quality: VTE Deep Vein Thrombosis/Pulmonary Embolism Present on Admission: No Exam Vital signs: Vital Signs 02/15/18 12:00 02/15/18 16:00 02/15/18 19:54 Temperature 98.2 F 97.8 F Pulse Rate 79 73 82 Respiratory Rate 18 16 18 Blood Pressure 149/74 H 140/82 Pulse Oximetry 95 97 02/15/18 20:00 02/15/18 21:20 02/16/18 00:00 Temperature 98.5 F 98.5 F Pulse Rate 85 84 Respiratory Rate 18 18 Blood Pressure 166/91 H 140/86 153/83 H Pulse Oximetry 98 98 02/16/18 04:00 02/16/18 07:59 02/16/18 08:00 Temperature 98.3 F 98.0 F Pulse Rate 88 92 H 95 H Respiratory Rate 18 12 16 Blood Pressure 155/77 H 176/92 H Pulse Oximetry 97 97 Intake & Output 02/15/18 02/16/18 02/16/18 18:59 06:59 18:59 Intake Total 1000 / 1000 Output Total 1075 / 1075 1400 / 1400 Balance -75 / -75 -1400 / -1400 Weight 145.5 kg Intake: IV 1000 / 1000 NS Inj 1,000 ML @ 150 mls/hr IV 1000 / 1000 .CONT .[id number] MADDIE Rx#:[id number] Output: Urine 1075 / 1075 1400 / 1400 Other: # Voids 3 # Bowel Movements 1 Narrative: GENERAL: Alert, Oriented x 3, NAD. Morbidly obese. SKIN: Warm and dry. HEAD: Normocephalic. EYES: No scleral icterus. No injection or drainage. NECK: Supple, trachea midline. No JVD or lymphadenopathy. CARDIOVASCULAR: Regular rate and rhythm without murmurs, gallops, or rubs. RESPIRATORY: Breath sounds equal bilaterally. No accessory muscle use. GASTROINTESTINAL: Abdomen soft, non-tender, nondistended. MUSCULOSKELETAL: No cyanosis, or edema. BACK: Nontender without obvious deformity. No CVA tenderness. Results Procedures completed during hospitalization: None. Labs on day of discharge: Labs from last 24 hours 02/16/18 02/16/18 02/16/18 09:06 04:23 04:23 WBC 5.4 RBC 3.74 L Hgb 11.4 L Hct 33.5 L MCV 89.6 MCH 30.5 MCHC 34.1 RDW 15.9 Plt Count 212 MPV 8.9 Sodium 144 Potassium 4.0 Chloride 109 H Carbon Dioxide 22.3 Anion Gap 13 BUN 29 H Creatinine 2.00 H Estimated GFR 36 L POC Glucose 171 H Random Glucose 129 H Hemoglobin A1c Calcium 8.3 L Total Bilirubin 0.8 AST 82 H ALT 84 H Alkaline Phosphatase 100 Total Protein 7.7 Albumin 3.3 L Lipase 457 H TSH Hepatitis A IgM Ab Hep Bs Antigen Hep B Core IgM Ab Hep C IgG Ab 02/15/18 02/15/18 02/15/18 20:35 15:07 12:19 WBC RBC Hgb Hct MCV MCH MCHC RDW Plt Count MPV Sodium Potassium Chloride Carbon Dioxide Anion Gap BUN Creatinine Estimated GFR POC Glucose 173 H 186 H 272 H Random Glucose Hemoglobin A1c Calcium Total Bilirubin AST ALT Alkaline Phosphatase Total Protein Albumin Lipase TSH Hepatitis A IgM Ab Hep Bs Antigen Hep B Core IgM Ab Hep C IgG Ab 02/15/18 02/15/18 02/15/18 12:05 12:05 07:10 WBC RBC Hgb Hct MCV MCH MCHC RDW Plt Count MPV Sodium Potassium Chloride Carbon Dioxide Anion Gap BUN Creatinine Estimated GFR POC Glucose Random Glucose Hemoglobin A1c Calcium Total Bilirubin AST ALT Alkaline Phosphatase Total Protein Albumin Lipase 551 H TSH 1.360 Hepatitis A IgM Ab Nonreactive Hep Bs Antigen Nonreactive Hep B Core IgM Ab Nonreactive Hep C IgG Ab Nonreactive 02/15/18 07:10 WBC RBC Hgb Hct MCV MCH MCHC RDW Plt Count MPV Sodium Potassium Chloride Carbon Dioxide Anion Gap BUN Creatinine Estimated GFR POC Glucose Random Glucose Hemoglobin A1c 8.5 H Calcium Total Bilirubin AST ALT Alkaline Phosphatase Total Protein Albumin Lipase TSH Hepatitis A IgM Ab Hep Bs Antigen Hep B Core IgM Ab Hep C IgG Ab - Impressions ITS Impressions Chest X-Ray 02/14/18 22:24 CONCLUSION: Negative examination. Abdomen Ultrasound 02/15/18 00:00 CONCLUSION: 1. Fatty liver enlarged to 25.3 cm. No ascites. No free fluid. Pancreas not well visualized. No gallstones or biliary ductal dilatation. Carotid Doppler Study 02/15/18 00:00 CONCLUSION: Negative for common carotid or internal carotid artery stenosis. Right vertebral artery and left external carotid artery not visualized. Head CT 02/15/18 00:00 CONCLUSION: 1. The only abnormality seen is a 12 mm hypodensity in the cortex of the right occipital lobe. No evidence of mass effect, blood products, or cerebral edema. This is of uncertain significance. Recommend further characterization of this finding with MRI with and without contrast. . Head MRI 02/15/18 00:00 CONCLUSION: 1. No acute intracranial abnormalities. Questionable remote small infarct or encephalomalacia in the right occipital lobe. Pulmonary Perfusion Imaging 02/15/18 00:05 CONCLUSION: 1. Low probability pulmonary embolism. Discharge Plan - Discharge Disposition Patient Disposition: 01 Discharge Home - Discharge Condition Condition: Fair - Discharge Order Discharge Orders: Discharge Order (Routine); Ordered 02/16/18 Ordered By: Mavis Love - Discharge Details Anticipated Discharge Date: 02/16/18 - Physicians Team Primary Care Provider: Primary Care Ines,Jalyn Attending Provider: Mavis Love
--- NOTE | 2018-02-16 14:21 | ECHRPT ---
Indication: Cardiomyopathy CONCLUSIONS The left ventricular systolic function is mildly reduced with an estimated ejection fraction in the range of 45- 50%. Normal left ventricular size. Nonobstructive prominent basal hypertrophy is present consistent with sigmoid septum. The left atrial size is upper limits of normal. There is trace tricuspid valve regurgitation. The pulmonary valve is not well visualized. BP: / HR: Rhythm: Sinus MEASUREMENTS (Male / Female) Normal Values Technical Quality:Technically difficult study 2D ECHO LV Diastolic Diameter PLAX 5.2 cm 4.2 - 5.9 / 3.9 - 5.3 cm LV Systolic Diameter PLAX 4.2 cm IVS Diastolic Thickness 1.2 cm 0.6 - 1.0 / 0.6 - 0.9 cm LVPW Diastolic Thickness 1.0 cm 0.6 - 1.0 / 0.6 - 0.9 cm LV Relative Wall Thickness 0.4 RV Internal Dim ED PLAX 3.9 cm LVOT Diameter 2.0 cm LA Systolic Diameter LX 4.0 cm 3.0 - 4.0 / 2.7 - 3.8 cm M-MODE Aortic Root Diameter MM 3.1 cm LA Systolic Diameter MM 3.9 cm LA Ao Ratio MM 1.3 AV Cusp Separation MM 2.1 cm DOPPLER AV Peak Velocity 141.0 cm/s AV Peak Gradient 8.0 mmHg LVOT Peak Velocity 101.0 cm/s LVOT Peak Gradient 4.1 mmHg AV Area Cont Eq pk 2.3 cm MV Area PHT 3.3 cm Mitral E Point Velocity 73.5 cm/s Mitral A Point Velocity 66.6 cm/s Mitral E to A Ratio 1.1 LV E' Lateral Velocity 12.4 cm/s Mitral E to LV E' Lateral Ratio 5.9 LV E' Septal Velocity 8.5 cm/s Mitral E to LV E' Septal Ratio 8.7 FINDINGS LEFT VENTRICLE The left ventricular systolic function is mildly reduced with an estimated ejection fraction in the range of 45- 50%. Normal left ventricular size. Nonobstructive prominent basal hypertrophy is present consistent with sigmoid septum. RIGHT VENTRICLE Normal right ventricular size and systolic function. LEFT ATRIUM The left atrial size is upper limits of normal. RIGHT ATRIUM The right atrial size is normal. ATRIAL SEPTUM Normal atrial septal thickness without atrial level shunting by limited color doppler interrogation. AORTA The aortic root and proximal ascending aorta are normal in size on limited imaging. MITRAL VALVE Structurally normal mitral valve. No mitral valve stenosis or regurgitation. AORTIC VALVE Trileaflet aortic valve. No aortic valve stenosis or regurgitation. TRICUSPID VALVE Structurally normal tricuspid valve. There is trace tricuspid valve regurgitation. PULMONARY VALVE The pulmonary valve is not well visualized. VESSELS The inferior vena cava is normal in size. PERICARDIUM No pericardial effusion. Oc Bowles MD, FACC, [facility] [place] (Electronically Signed) Final Date:16 February 2018 14:20
== END 2018-02-16 10:58 | disposition home or self-care (01) ==
LOC: NEPC 21:37 → NEDA 02-15 01:42 → N06 02-15 03:25
PROVIDERS: ADMIT Hospitalist; ATTEND Hospitalist